=== PATIENT | male | born 1960 | race Caucasian/White ===

== ENCOUNTER 2017-10-27 16:10 | Inpatient (IN) | payer OTHER ==
[~2017-10-27] VITALS: Ht 177.8 cm; Wt 84.8 kg
[2017-10-27 16:56] LABS: HEMATOCRIT 40.4 % (38.0-50.0); HEMOGLOBIN 13.2 G/DL (12.5-16.6); MCH 26.9 PG (29.0-34.0); MCHC 32.7 G/DL (30.0-36.0); MCV 82.4 FL (86-99); PLATELET COUNT 135 K/uL (156-360); RBC DIS.WIDTH-CV 15.5 % (11.8-14.6); RBC DIS.WIDTH-SD 46.8 % (39-53); WHITE BLOOD COUNT 9.3 K/uL (4.1-10.2)
[2017-10-27 17:06] LABS: ALBUMIN 3.8 g/dL (3.2-4.8); CHLORIDE 101 mEq/L (99-109); POTASSIUM 3.2 mEq/L (3.7-5.4); SODIUM 138 mEq/L (136-147)
[2017-10-27 17:08] LABS: GLUCOSE 120 mg/dL (70-99); TOTAL PROTEIN 7.1 g/dL (6.4-8.3)
[2017-10-27 17:10] LABS: TOTAL BILIRUBIN 0.6 mg/dL (0.0-1.0)
[2017-10-27 17:12] LABS: ALKALINE PHOSPHATASE 95 IU/L (3-129); CREATININE 1.2 mg/dL (0.6-1.3); GFR ESTIMATE (CALCULATED) > 59 mL/min/ (58.99-99999)
[2017-10-27 17:13] LABS: UREA NITROGEN (BUN) 12 mg/dL (9-23)
[2017-10-27 17:14] LABS: AST (GOT) 13 IU/L (2-34)
[2017-10-27 17:15] LABS: ALT (GPT) 11 IU/L (3-49)
[2017-10-27 17:21] LABS: TROP-I INTERPRETATION NEGATIVE; TROPONIN-I 0.26 ng/mL (0.0-0.30)
[2017-10-27] MEDS ORDERED: GLYBURIDE-METF1 EAC1 PO (19:41)
[2017-10-27] MEDS ORDERED: CARVEDILOL6.25 MG PO (19:41)
[2017-10-27 20:21] LABS: HDL CHOLESTEROL 26 MG/DL (Desirable>=40); LDL CHOLESTEROL 167 mg/dL (Desirable<100); NON-HDL CHOLESTEROL 222 mg/dL (Desirable<160); TOTAL CHOLESTEROL 248 mg/dL (Desirable<200); TRIGLYCERIDES 275 MG/DL (Normal: <150)
[2017-10-27 20:27] VITALS: BP 148/100
[2017-10-28 00:40] VITALS: BP 127/78
[2017-10-28 04:10] VITALS: BP 103/60
[2017-10-28 07:48] VITALS: BP 117/77
[2017-10-28 11:33] VITALS: BP 112/71
[2017-10-28 16:00] VITALS: BP 109/63
[2017-10-28 20:22] VITALS: BP 107/61
[2017-10-29] VITALS (7 sets, daily range): BP systolic 103–133; BP diastolic 59–86
[2017-10-29 06:53] LABS: CHLORIDE 100 MEQ/L (99-109); CREATININE 1.2 MG/DL (0.6-1.3); GFR ESTIMATE (CALCULATED) > 59 mL/min/ (58.99-99999); GLUCOSE 173 mg/dL (70-99); POTASSIUM 3.3 MEQ/L (3.7-5.4); SODIUM 143 MEQ/L (136-147); UREA NITROGEN (BUN) 15 mg/dL (9-23)
[2017-10-29 09:29] LABS: HEMOGLOBIN A1c (GLYCOHEMOGLOB) 8.8 % (Below 5.7)
[2017-10-30 03:55] VITALS: BP 119/80
[2017-10-30 07:33] VITALS: BP 133/88
[2017-10-30 11:22] VITALS: BP 115/78
[2017-10-30 15:51] VITALS: BP 115/78
[2017-10-30 19:59] VITALS: BP 100/57
[2017-10-31] VITALS (7 sets, daily range): BP systolic 96–128; BP diastolic 52–77
[2017-10-31 06:03] LABS: HEMATOCRIT 37.1 % (38.0-50.0); HEMOGLOBIN 11.8 G/DL (12.5-16.6); MCH 26.7 PG (29.0-34.0); MCHC 31.8 G/DL (30.0-36.0); MCV 83.9 FL (86-99); RBC DIS.WIDTH-CV 15.8 % (11.8-14.6); RBC DIS.WIDTH-SD 48.6 % (39-53); RED BLOOD COUNT 4.42 M/uL (4.00-5.50); WHITE BLOOD COUNT 7.2 K/uL (4.1-10.2)
[2017-10-31 06:07] LABS: PLATELET COUNT 208 K/uL (156-360)
[2017-10-31 06:27] LABS: ALBUMIN 3.5 G/DL (3.2-4.8); ALKALINE PHOSPHATASE 62 IU/L (3-129); ALT (GPT) 13 IU/L (3-49); AST (GOT) 15 IU/L (2-34); CHLORIDE 100 MEQ/L (99-109); CREATININE 1.3 MG/DL (0.6-1.3); GFR ESTIMATE (CALCULATED) > 59 mL/min/ (58.99-99999); GLUCOSE 184 mg/dL (70-99); POTASSIUM 3.8 MEQ/L (3.7-5.4); SODIUM 137 MEQ/L (136-147); TOTAL BILIRUBIN 0.5 MG/DL (0.0-1.0); TOTAL PROTEIN 6.1 G/DL (6.4-8.3); UREA NITROGEN (BUN) 19 mg/dL (9-23)
[2017-10-31] MEDS ORDERED: NICOTINE PATCH1 EAC2 TD (10:24)
[2017-10-31] MEDS ORDERED: CLOPIDOGREL75 MG PO (10:24)
[2017-10-31] MEDS ORDERED: ATORVASTATIN CA40 MG PO (10:24)
[2017-10-31] MEDS ORDERED: LOSARTAN POTASS50 MG PO (10:25)
[2017-10-31] MEDS ORDERED: ASPIR-LOW81 MG PO (10:25)
[2017-10-31] MEDS ORDERED: FUROSEMIDE40 MG/5 ML PO (10:26)
[2017-10-31] MEDS ORDERED: KLOR-CON M1010 MEQ PO (10:26)
[2017-11-01 03:22] VITALS: BP 94/61
[2017-11-01 07:57] VITALS: BP 93/52
[2017-11-01 12:14] VITALS: BP 102/68
[2017-11-01] MEDS ORDERED: NOVOLOG 10100 UNITS/ SC (17:13)
[2017-11-01] MEDS ORDERED: HEPARIN SO5000 UNIT4 SC (17:14)
== END 2017-11-01 15:38 | DRG 66 ==
LOC: EME 16:10 → 5SOUTH 18:49 → EDOF 18:49 → ENRESERV 18:54 → 5SOUTH 19:58
PROVIDERS: Emergency Medicine Emergency Medical Services; Internal Medicine
DX: I63.411 Cerebral infarction due to embolism of right middle cerebral artery (principal); R26.2 Difficulty in walking, not elsewhere classified; I11.0 Hypertensive heart disease with heart failure; I50.9 Heart failure, unspecified; E11.9 Type 2 diabetes mellitus without complications; I25.5 Ischemic cardiomyopathy; E78.5 Hyperlipidemia, unspecified; F17.210 Nicotine dependence, cigarettes, uncomplicated; J45.909 Unspecified asthma, uncomplicated; M19.90 Unspecified osteoarthritis, unspecified site
CPT/HCPCS: 70450; 70551; 71045; 80048; 80053; 80061; 82948; 83036; 84484; 85027; 93005; 93306; 93880; 97530 GO; 97530 GP; 99281; 99285; J1644; J1815

== ENCOUNTER 2017-11-01 14:50 | Inpatient (IN) | payer OTHER ==
[~2017-11-01] VITALS: Ht 177.8 cm; Wt 94.8 kg
[~2017-11-01 14:50] MED LIST: ASPIR-LOW81 MG PO; ATORVASTATIN CA40 MG PO; CARVEDILOL6.25 MG PO; CLOPIDOGREL75 MG PO; FUROSEMIDE40 MG/5 ML PO; GLYBURIDE-METF1 EAC1 PO; KLOR-CON M1010 MEQ PO; LOSARTAN POTASS50 MG PO; NICOTINE PATCH1 EAC2 TD
[2017-11-01 16:29] VITALS: BP 109/67
[2017-11-01] MEDS ORDERED: NOVOLOG 10100 UNITS/ SC (17:13)
[2017-11-01] MEDS ORDERED: HEPARIN SO5000 UNIT4 SC (17:14)
[2017-11-01 23:30] VITALS: BP 108/62
[2017-11-02 05:27] VITALS: BP 126/80
[2017-11-02 07:07] LABS: HEMATOCRIT 40.6 % (38.0-50.0); MCH 27.1 PG (29.0-34.0); MCV 84.8 FL (86-99); PLATELET COUNT 258 K/uL (156-360); RBC DIS.WIDTH-CV 16.1 % (11.8-14.6); RBC DIS.WIDTH-SD 49.2 % (39-53); RED BLOOD COUNT 4.79 M/uL (4.00-5.50); WHITE BLOOD COUNT 7.2 K/uL (4.1-10.2)
[2017-11-02 07:36] LABS: ALBUMIN 3.7 G/DL (3.2-4.8); ALKALINE PHOSPHATASE 83 IU/L (3-129); ALT (GPT) 18 IU/L (3-49); AST (GOT) 16 IU/L (2-34); CHLORIDE 96 MEQ/L (99-109); CREATININE 1.2 MG/DL (0.6-1.3); GFR ESTIMATE (CALCULATED) > 59 mL/min/ (58.99-99999); GLUCOSE 212 mg/dL (70-99); POTASSIUM 4.2 MEQ/L (3.7-5.4); SODIUM 134 MEQ/L (136-147); TOTAL BILIRUBIN 0.5 MG/DL (0.0-1.0); TOTAL PROTEIN 6.9 G/DL (6.4-8.3); UREA NITROGEN (BUN) 17 mg/dL (9-23)
[2017-11-02 15:28] VITALS: BP 101/64
[2017-11-03 05:34] VITALS: BP 101/67
[2017-11-03 15:48] VITALS: BP 100/64
[2017-11-04 05:40] VITALS: BP 112/72
[2017-11-04 15:52] VITALS: BP 94/64
[2017-11-05 04:40] LABS: HEMATOCRIT 39.5 % (38.0-50.0); MCH 27.6 PG (29.0-34.0); MCHC 32.9 G/DL (30.0-36.0); MCV 83.9 FL (86-99); PLATELET COUNT 305 K/uL (156-360); RBC DIS.WIDTH-CV 16.5 % (11.8-14.6); RBC DIS.WIDTH-SD 50.4 % (39-53); RED BLOOD COUNT 4.71 M/uL (4.00-5.50); WHITE BLOOD COUNT 8.4 K/uL (4.1-10.2)
[2017-11-05 04:50] LABS: CHLORIDE 99 mEq/L (99-109); POTASSIUM 4.8 mEq/L (3.7-5.4); SODIUM 135 mEq/L (136-147)
[2017-11-05 04:52] LABS: GLUCOSE 166 mg/dL (70-99)
[2017-11-05 04:56] LABS: CREATININE 1.4 mg/dL (0.6-1.3); GFR ESTIMATE (CALCULATED) 55 mL/min/ (58.99-99999)
[2017-11-05 04:59] LABS: UREA NITROGEN (BUN) 32 mg/dL (9-23)
[2017-11-05 05:31] VITALS: BP 105/61
[2017-11-05 15:41] VITALS: BP 99/55
[2017-11-06 05:34] VITALS: BP 117/72
[2017-11-06 15:12] VITALS: BP 95/55
[2017-11-07 05:38] VITALS: BP 119/76
[2017-11-07 14:31] LABS: C DIFF TOXIN NEGATIVE (NEGATIVE)
[2017-11-07 15:09] VITALS: BP 103/69
[2017-11-07 20:37] VITALS: BP 102/60
[2017-11-08 05:58] VITALS: BP 132/67
[2017-11-08 08:26] VITALS: BP 110/58
[2017-11-08 15:14] VITALS: BP 101/59
[2017-11-09 05:31] VITALS: BP 110/64
[2017-11-09 15:24] VITALS: BP 95/59
[2017-11-10 05:17] VITALS: BP 103/60
[2017-11-10 16:23] VITALS: BP 110/57
[2017-11-11 05:14] VITALS: BP 110/69
[2017-11-11 15:11] VITALS: BP 97/62
[2017-11-12 05:44] VITALS: BP 105/61; BP 1052/61
[2017-11-12 12:16] VITALS: BP 92/53
[2017-11-12 16:41] VITALS: BP 101/64
[2017-11-13 05:29] VITALS: BP 132/64
[2017-11-13 15:12] VITALS: BP 109/56
[2017-11-14 04:07] VITALS: BP 115/76
[2017-11-14 15:38] VITALS: BP 91/53
[2017-11-15 04:58] VITALS: BP 118/74
[2017-11-15 16:29] VITALS: BP 103/57
[2017-11-16 05:28] VITALS: BP 124/58
[2017-11-16 16:14] VITALS: BP 92/56
[2017-11-17 03:58] VITALS: BP 106/63
[2017-11-17 12:25] LABS: BASOPHIL (%) 0.8 % (0-1); BASOPHIL COUNT 0.1 K/uL (0-0.1); EOSINOPHIL (%) 4.2 % (0-5); EOSINOPHIL COUNT 0.3 K/uL (0-0.3); HEMATOCRIT 41.7 % (38.0-50.0); HEMOGLOBIN 13.2 G/DL (12.5-16.6); IMMATURE GRANULOCYTE (%) 0.1 % (0.0-0.7); LYMPHOCYTE (%) 18.9 % (15-42); LYMPHOCYTE COUNT 1.4 K/uL (1.0-2.8); MCH 27.2 PG (29.0-34.0); MCHC 31.7 G/DL (30.0-36.0); MONOCYTE (%) 7.7 % (3-12); MONOCYTE COUNT 0.6 K/uL (0-0.8); NEUTROPHIL (%) 68.3 % (45-76); PLATELET COUNT 294 K/uL (156-360); RBC DIS.WIDTH-CV 17.1 % (11.8-14.6); RED BLOOD COUNT 4.85 M/uL (4.00-5.50); WHITE BLOOD COUNT 7.3 K/uL (4.1-10.2)
[2017-11-17 12:50] LABS: ALKALINE PHOSPHATASE 78 IU/L (3-129); ALT (GPT) 25 IU/L (3-49); AST (GOT) 16 IU/L (2-34); CHLORIDE 101 MEQ/L (99-109); CREATININE 1.2 MG/DL (0.6-1.3); GFR ESTIMATE (CALCULATED) > 59 mL/min/ (58.99-99999); GLUCOSE 199 mg/dL (70-99); POTASSIUM 4.6 MEQ/L (3.7-5.4); SODIUM 136 MEQ/L (136-147); TOTAL BILIRUBIN 0.4 MG/DL (0.0-1.0); TOTAL PROTEIN 7.1 G/DL (6.4-8.3); UREA NITROGEN (BUN) 29 mg/dL (9-23)
[2017-11-17 15:58] VITALS: BP 100/63
[2017-11-18 04:44] VITALS: BP 102/69
[2017-11-18 15:27] VITALS: BP 106/58
[2017-11-18 21:52] VITALS: BP 111/53
[2017-11-19 05:14] VITALS: BP 130/74
[2017-11-19 15:32] VITALS: BP 91/58
[2017-11-19 16:47] VITALS: BP 108/58
[2017-11-20] MEDS ORDERED: CARVEDILOL6.25 MG PO (00:28)
[2017-11-20] MEDS ORDERED: CLOPIDOGREL75 MG PO (00:28)
[2017-11-20] MEDS ORDERED: LOSARTAN POTASS50 MG PO (00:28)
[2017-11-20] MEDS ORDERED: GLIPIZIDE10 MG PO (00:28)
[2017-11-20] MEDS ORDERED: NICOTINE PATCH1 EAC2 TD (00:28)
[2017-11-20] MEDS ORDERED: FUROSEMIDE20 MG PO (00:28)
[2017-11-20] MEDS ORDERED: ATORVASTATIN CA40 MG PO (00:28)
[2017-11-20] MEDS ORDERED: KLOR-CON M1010 MEQ PO (00:28)
[2017-11-20] MEDS ORDERED: ASPIR-LOW81 MG PO (00:28)
[2017-11-20 05:06] VITALS: BP 98/56
== END 2017-11-20 14:30 | disposition home or self-care (01) | DRG 57 ==
LOC: 3WEST 14:50 → ENPENDDIS 11-14 → 3WEST 11-18 09:28
PROVIDERS: Physical Medicine & Rehabilitation Pain Medicine; Psychiatry & Neurology Neurology
PROC: F07M0ZZ Range of Motion and Joint Mobility Treatment of Musculoskeletal System - Whole Body (ICD-10-PCS; principal; 2017-11-01)
PROC: 0HBRXZZ Excision of Toe Nail, External Approach (ICD-10-PCS; 2017-11-07)
DX: I69.354 Hemiplegia and hemiparesis following cerebral infarction affecting left non-dominant side (principal); L60.0 Ingrowing nail; E87.1 Hypo-osmolality and hyponatremia; R19.7 Diarrhea, unspecified; T38.3X5A Adverse effect of insulin and oral hypoglycemic [antidiabetic] drugs, initial encounter; R45.87 Impulsiveness; E11.9 Type 2 diabetes mellitus without complications; I11.0 Hypertensive heart disease with heart failure; I50.9 Heart failure, unspecified; I25.5 Ischemic cardiomyopathy; D69.6 Thrombocytopenia, unspecified; E78.5 Hyperlipidemia, unspecified; E83.51 Hypocalcemia; D64.9 Anemia, unspecified; E77.8 Other disorders of glycoprotein metabolism; I34.0 Nonrheumatic mitral (valve) insufficiency; F17.200 Nicotine dependence, unspecified, uncomplicated; Z79.82 Long term (current) use of aspirin; Z79.02 Long term (current) use of antithrombotics/antiplatelets
CPT/HCPCS: 80048; 80053; 82948; 85025; 85027; 87493; 97110 GO; 97530 GP; J1644; J1815

== ENCOUNTER 2018-01-11 19:42 | Inpatient (IN) | payer OTHER ==
[~2018-01-11] VITALS: Ht 177.8 cm; Wt 102.1 kg
[~2018-01-11 19:42] MED LIST changes: +FUROSEMIDE20 MG PO; +GLIPIZIDE10 MG PO; +HEPARIN SO5000 UNIT4 SC; +NOVOLOG 10100 UNITS/ SC
[2018-01-11 20:21] LABS: HEMATOCRIT 36.2 % (38.0-50.0); HEMOGLOBIN 12.1 G/DL (12.5-16.6); MCH 28.4 PG (29.0-34.0); MCHC 33.4 G/DL (30.0-36.0); PLATELET COUNT 140 K/uL (156-360); RBC DIS.WIDTH-CV 16.9 % (11.8-14.6); RBC DIS.WIDTH-SD 52.5 % (39-53); RED BLOOD COUNT 4.26 M/uL (4.00-5.50); WHITE BLOOD COUNT 9.9 K/uL (4.1-10.2)
[2018-01-11 20:30] LABS: CHLORIDE 103 mEq/L (99-109); POTASSIUM 4.4 mEq/L (3.7-5.4); SODIUM 136 mEq/L (136-147)
[2018-01-11 20:32] LABS: GLUCOSE 158 mg/dL (70-99)
[2018-01-11 20:33] LABS: TOTAL PROTEIN 7.5 g/dL (6.4-8.3)
[2018-01-11 20:36] LABS: ALKALINE PHOSPHATASE 90 IU/L (3-129); CREATININE 1.9 mg/dL (0.6-1.3); GFR ESTIMATE (CALCULATED) 39 mL/min/ (58.99-99999); TOTAL BILIRUBIN 0.2 mg/dL (0.0-1.0)
[2018-01-11 20:37] LABS: UREA NITROGEN (BUN) 26 mg/dL (9-23)
[2018-01-11 20:38] LABS: AST (GOT) 20 IU/L (2-34)
[2018-01-11 20:39] LABS: ALT (GPT) 15 IU/L (3-49)
[2018-01-11 20:41] LABS: INTER. NORMALIZED RATIO 1.4
[2018-01-11 20:42] LABS: TROP-I INTERPRETATION POSITIVE
[2018-01-11 20:44] LABS: PTT 26.8 SEC (25-37); TROPONIN-I 3.57 ng/mL (0.0-0.30)
[2018-01-11] MEDS ORDERED: PLAVIX75 MG PO (21:47)
[2018-01-11] MEDS ORDERED: COZAAR50 MG PO (21:47)
[2018-01-11] MEDS ORDERED: LIPITOR40 MG PO (21:47)
[2018-01-11] MEDS ORDERED: FUROSEMIDE20 MG PO (21:48)
[2018-01-11] MEDS ORDERED: KLOR-CON M1010 MEQ PO (21:48)
[2018-01-11] MEDS ORDERED: GLIPIZIDE XL10 MG PO (21:48)
[2018-01-11] MEDS ORDERED: NICODERM CQ1 EAC2 TD (21:48)
[2018-01-11] MEDS ORDERED: BACTRIM,SEPT1 TABLET PO (21:49)
[2018-01-11] MEDS ORDERED: JANUVIA100 MG PO (21:49)
[2018-01-11] MEDS ORDERED: CARVEDILOL6.25 MG PO (21:49)
[2018-01-11] MEDS ORDERED: ADULT ASPIRIN R81 MG PO (21:49)
[2018-01-12] VITALS (7 sets, daily range): BP systolic 104–117; BP diastolic 63–76
[2018-01-12 02:37] LABS: TROP-I INTERPRETATION POSITIVE; TROPONIN-I 3.25 ng/mL (0.0-0.30)
[2018-01-12 09:11] LABS: TROP-I INTERPRETATION POSITIVE
[2018-01-12 09:15] LABS: TROPONIN-I 2.92 ng/mL (0.0-0.30)
[2018-01-12 14:14] LABS: TROP-I INTERPRETATION POSITIVE
[2018-01-12 14:15] LABS: TROPONIN-I 2.31 ng/mL (0.0-0.30)
[2018-01-13 03:37] VITALS: BP 118/75
[2018-01-13 07:40] VITALS: BP 132/72
[2018-01-13 11:44] VITALS: BP 107/67
[2018-01-13 11:58] LABS: HEMOGLOBIN 11.5 G/DL (12.5-16.6); MCH 28.5 PG (29.0-34.0); MCHC 32.9 G/DL (30.0-36.0); MCV 86.6 FL (86-99); RBC DIS.WIDTH-CV 17.1 % (11.8-14.6); RBC DIS.WIDTH-SD 54.4 % (39-53); RED BLOOD COUNT 4.04 M/uL (4.00-5.50); WHITE BLOOD COUNT 8.3 K/uL (4.1-10.2)
[2018-01-13 12:02] LABS: PLATELET COUNT 217 K/uL (156-360)
[2018-01-13 12:08] LABS: CHLORIDE 104 mEq/L (99-109); POTASSIUM 4.6 mEq/L (3.7-5.4); SODIUM 138 mEq/L (136-147)
[2018-01-13 12:09] LABS: GLUCOSE 156 mg/dL (70-99)
[2018-01-13 12:13] LABS: CREATININE 1.7 mg/dL (0.6-1.3); GFR ESTIMATE (CALCULATED) 44 mL/min/ (58.99-99999)
[2018-01-13 12:14] LABS: UREA NITROGEN (BUN) 27 mg/dL (9-23)
[2018-01-13 14:55] VITALS: BP 97/57
[2018-01-13 21:00] VITALS: BP 106/58
[2018-01-13 23:45] VITALS: BP 110/70
[2018-01-14 04:41] VITALS: BP 122/73
[2018-01-14 07:14] LABS: BASOPHIL (%) 0.8 % (0-1); BASOPHIL COUNT 0.1 K/uL (0-0.1); EOSINOPHIL (%) 4.9 % (0-5); EOSINOPHIL COUNT 0.4 K/uL (0-0.3); HEMATOCRIT 34.6 % (38.0-50.0); HEMOGLOBIN 11.1 G/DL (12.5-16.6); IMMATURE GRANULOCYTE (%) 0.8 % (0.0-0.7); LYMPHOCYTE (%) 17.4 % (15-42); LYMPHOCYTE COUNT 1.6 K/uL (1.0-2.8); MCHC 32.1 G/DL (30.0-36.0); MCV 87.2 FL (86-99); MONOCYTE (%) 9.9 % (3-12); MONOCYTE COUNT 0.9 K/uL (0-0.8); NEUTROPHIL (%) 66.2 % (45-76); NEUTROPHIL COUNT 5.9 K/uL (1.8-6.4); PLATELET COUNT 232 K/uL (156-360); RBC DIS.WIDTH-CV 17.1 % (11.8-14.6); RBC DIS.WIDTH-SD 55.5 % (39-53); RED BLOOD COUNT 3.97 M/uL (4.00-5.50); WHITE BLOOD COUNT 8.9 K/uL (4.1-10.2)
[2018-01-14 08:01] VITALS: BP 1140/70
[2018-01-14 08:21] LABS: CHLORIDE 104 MEQ/L (99-109); CREATININE 1.7 MG/DL (0.6-1.3); GFR ESTIMATE (CALCULATED) 44 mL/min/ (58.99-99999); GLUCOSE 145 mg/dL (70-99); POTASSIUM 5.4 MEQ/L (3.7-5.4); SODIUM 137 MEQ/L (136-147); UREA NITROGEN (BUN) 30 mg/dL (9-23)
[2018-01-14 14:59] VITALS: BP 103/59
[2018-01-14 15:52] VITALS: BP 103/59
[2018-01-14 19:35] VITALS: BP 105/56
[2018-01-14 23:34] VITALS: BP 123/82
[2018-01-15 03:50] VITALS: BP 118/74
[2018-01-15 06:25] LABS: CHLORIDE 105 MEQ/L (99-109); CREATININE 1.6 MG/DL (0.6-1.3); GFR ESTIMATE (CALCULATED) 47 mL/min/ (58.99-99999); GLUCOSE 146 mg/dL (70-99); POTASSIUM 4.7 MEQ/L (3.7-5.4); SODIUM 137 MEQ/L (136-147); UREA NITROGEN (BUN) 27 mg/dL (9-23)
[2018-01-15 07:21] VITALS: BP 112/66
[2018-01-15 09:51] VITALS: BP 128/77
[2018-01-15 12:02] VITALS: BP 120/77
[2018-01-15 15:22] VITALS: BP 126/72
[2018-01-15] MEDS ORDERED: DOCUSATE SODIU100 MG PO (15:38)
[2018-01-15] MEDS ORDERED: LOSARTAN POTASS25 MG PO (15:53)
== END 2018-01-15 16:32 | disposition home or self-care (01) | DRG 280 ==
LOC: EME → EDBD 19:42 → 4EAST 22:00 → EDOF 22:00 → ENRESERV 22:30 → 4EAST 23:48
PROVIDERS: Emergency Medicine; Family Medicine; Internal Medicine Cardiovascular Disease
DX: I21.A1 Myocardial infarction type 2 (principal); I13.0 Hypertensive heart and chronic kidney disease with heart failure and stage 1 through stage 4 chronic kidney disease, or unspecified chronic kidney disease; I50.43 Acute on chronic combined systolic (congestive) and diastolic (congestive) heart failure; E11.22 Type 2 diabetes mellitus with diabetic chronic kidney disease; N18.9 Chronic kidney disease, unspecified; I42.0 Dilated cardiomyopathy; E78.5 Hyperlipidemia, unspecified; J45.909 Unspecified asthma, uncomplicated; G43.909 Migraine, unspecified, not intractable, without status migrainosus; N17.9 Acute kidney failure, unspecified; I34.0 Nonrheumatic mitral (valve) insufficiency; E66.3 Overweight; Z86.73 Personal history of transient ischemic attack (TIA), and cerebral infarction without residual deficits; Z87.891 Personal history of nicotine dependence; Z68.28 Body mass index [BMI] 28.0-28.9, adult
CPT/HCPCS: 70450; 71046; 80048; 80053; 82948; 84484; 85025; 85027; 85610; 85730; 93005; 93306; 99281; 99285; C1769; C1887; J1644; J2250; J3010; J7030; J7040

== ENCOUNTER 2018-01-20 22:46 | Inpatient (IN) | payer OTHER ==
[~2018-01-20] VITALS: Ht 180.3 cm; Wt 86.8 kg
[~2018-01-20 22:46] MED LIST changes: +ADULT ASPIRIN R81 MG PO; +BACTRIM,SEPT1 TABLET PO; +COZAAR50 MG PO; +DOCUSATE SODIU100 MG PO; +GLIPIZIDE XL10 MG PO; +JANUVIA100 MG PO; +LIPITOR40 MG PO; +LOSARTAN POTASS25 MG PO; +NICODERM CQ1 EAC2 TD; +PLAVIX75 MG PO
[2018-01-21 00:11] LABS: INTER. NORMALIZED RATIO 2.1
[2018-01-21 00:13] LABS: BASOPHIL (%) 0.3 % (0-1); BASOPHIL COUNT 0.1 K/uL (0-0.1); EOSINOPHIL (%) 0.1 % (0-5); HEMATOCRIT 30.8 % (38.0-50.0); HEMOGLOBIN 10.6 G/DL (12.5-16.6); IMMATURE GRANULOCYTE (%) 1.7 % (0.0-0.7); LYMPHOCYTE (%) 11.2 % (15-42); LYMPHOCYTE COUNT 1.8 K/uL (1.0-2.8); MCH 28.8 PG (29.0-34.0); MCHC 34.4 G/DL (30.0-36.0); MONOCYTE (%) 12.3 % (3-12); NEUTROPHIL (%) 74.4 % (45-76); NEUTROPHIL COUNT 12.1 K/uL (1.8-6.4); NRBC (%) 0.1 /100 WBC (0-0); RBC DIS.WIDTH-CV 17.1 % (11.8-14.6); RBC DIS.WIDTH-SD 51.9 % (39-53); RED BLOOD COUNT 3.68 M/uL (4.00-5.50); WHITE BLOOD COUNT 16.2 K/uL (4.1-10.2)
[2018-01-21 00:17] LABS: ALBUMIN 3.9 g/dL (3.2-4.8); CHLORIDE 98 mEq/L (99-109); SODIUM 132 mEq/L (136-147)
[2018-01-21 00:19] LABS: GLUCOSE 200 mg/dL (70-99); TOTAL PROTEIN 6.9 g/dL (6.4-8.3)
[2018-01-21 00:21] LABS: TOTAL BILIRUBIN 0.6 mg/dL (0.0-1.0)
[2018-01-21 00:23] LABS: ALKALINE PHOSPHATASE 97 IU/L (3-129)
[2018-01-21 00:24] LABS: DIRECT BILIRUBIN 0.3 mg/dL (0.0-0.3); PTT 32.9 SEC (25-37)
[2018-01-21 00:26] LABS: LIPASE 34 U/L (1.0-51.0)
[2018-01-21 00:30] LABS: ALT (GPT) 1455 IU/L (3-49); AST (GOT) 1342 IU/L (2-34); CREATININE 5.6 mg/dL (0.6-1.3); GFR ESTIMATE (CALCULATED) 11 mL/min/ (58.99-99999); UREA NITROGEN (BUN) 80 mg/dL (9-23)
[2018-01-21 00:32] LABS: MCV 83.7 FL (86-99)
[2018-01-21 00:49] LABS: ACETAMINOPHEN (TYLENOL) < 10 mcg/mL (10-30)
[2018-01-21 02:12] LABS: APPEARANCE SL.HAZY ((CLEAR)); BILIRUBIN NEGATIVE; BLOOD MODERATE; COLOR AMBER ((YELLOW)); GLUCOSE (STRIP) NEGATIVE; KETONES NEGATIVE; LEUKOCYTES NEGATIVE; NITRITE NEGATIVE; PROTEIN (STRIP) NEGATIVE; SPECIFIC GRAVITY 1.021 (1.000-1.030); UROBILINOGEN 0.2 MG/DL (0.2-1.0)
[2018-01-21 02:18] LABS: BACTERIA RARE /HPF; CALCIUM OXALATE CRYSTALS 2+ /HPF; EPITHELIAL CELLS RARE /HPF; HYALINE CASTS 0-5 /LPF; MUCUS TRACE /LPF; UCUL ADDED? NO; WHITE BLOOD CELLS 0-5 /HPF (0-5)
[2018-01-21 03:29] LABS: PLAT.SUFFICIENCY DECREASED
[2018-01-21 03:51] VITALS: BP 100/49
[2018-01-21 04:00] LABS: PLATELET COUNT 84 K/uL (156-360)
[2018-01-21 06:45] VITALS: BP 00/0
== END 2018-01-21 06:00 ==
LOC: EME 22:46 → EDOF 01-21 02:58 → ENRESERV 01-21 02:59 → CANRESERV 01-21 04:02 → EDOF 01-21 06:00
PROVIDERS: Emergency Medicine
DX: I95.9 Hypotension, unspecified (principal); K72.00 Acute and subacute hepatic failure without coma; I21.A1 Myocardial infarction type 2; J96.00 Acute respiratory failure, unspecified whether with hypoxia or hypercapnia; N17.9 Acute kidney failure, unspecified; I42.8 Other cardiomyopathies; I30.9 Acute pericarditis, unspecified; I31.4 Cardiac tamponade; K92.0 Hematemesis; I10 Essential (primary) hypertension; E11.9 Type 2 diabetes mellitus without complications; I25.10 Atherosclerotic heart disease of native coronary artery without angina pectoris; J44.9 Chronic obstructive pulmonary disease, unspecified; E87.5 Hyperkalemia; I46.9 Cardiac arrest, cause unspecified; I25.5 Ischemic cardiomyopathy; Z86.73 Personal history of transient ischemic attack (TIA), and cerebral infarction without residual deficits; Z79.02 Long term (current) use of antithrombotics/antiplatelets; I25.2 Old myocardial infarction; Z79.82 Long term (current) use of aspirin; Z79.84 Long term (current) use of oral hypoglycemic drugs; Z87.891 Personal history of nicotine dependence
CPT/HCPCS: 70450; 71045; 74176; 80048; 80076; 81003; 82140; 83605; 83690; 85025; 85610; 85730; 86850; 86900; 86901; 86920; 87040; 87070; 87205; 93005; 94002; 99281; 99285; C1751; C9113; G0480; J0461; J0692; J1644; J2060; J2250; J2405; J3010; J3370; J7030; P9016